=== PATIENT | male | born 1965 | race Caucasian/White ===

== ENCOUNTER → 2018-06-22 | Outpatient (CLI) | payer BC ==
--- NOTE | 2018-06-22 11:54 | XR ---
EXAM TYPE: LUMBAR SPINE X RAY SERIES COMPARISON: NONE HISTORY: Lower back pain TECHNIQUE: 4 views are submitted. FINDINGS: Alignment is anatomic. The pedicles are intact. The transverse processes are intact. There is no s pondylolysis or spondylolisthesis. Facet arthropathy L5-S1. Degenerative disc disease L4-5 and L5-S1 . IMPRESSION: 1. No acute process. Degenerative disc disease, hypertrophic spurring and facet arthropathy L4-5 and L5-S1. Recommend follow-up MRI.
== END | disposition home or self-care (01) ==
LOC: RADXRYALE 11:26
PROVIDERS: ATTEND Internal Medicine
DX: M51.36 Other intervertebral disc degeneration, lumbar region (principal); M51.37 Other intervertebral disc degeneration, lumbosacral region; M46.96 Unspecified inflammatory spondylopathy, lumbar region; M46.97 Unspecified inflammatory spondylopathy, lumbosacral region
CPT/HCPCS: 72110

== ENCOUNTER → 2019-04-15 | Outpatient (CLI) | payer BC ==
--- NOTE | 2019-04-15 15:42 | XR ---
EXAMINATION TYPE: XR chest 2V DATE OF EXAM: 04/15/2019 COMPARISON: NONE HISTORY: Bronchospasm bronchitis TECHNIQUE: Frontal and lateral views of the chest are obtained. FINDINGS: There is eventration of the right hemidiaphragm. There is bronchial wall thickening. There is no focal air space opacity, pleural effusion, or pneumothorax seen. The cardiac silhouette size i s within normal limits. The osseous structures are intact. IMPRESSION: Correlate for bronchitis, reactive airways disease, follow-up as indicated.
== END | disposition home or self-care (01) ==
LOC: RADXRMAIN 11:23
PROVIDERS: ATTEND Internal Medicine
DX: J20.9 Acute bronchitis, unspecified (principal)
CPT/HCPCS: 71046

== ENCOUNTER → 2023-04-03 | Outpatient (CLI) | payer BC ==
--- NOTE | 2023-04-03 12:22 | CA ---
Transthoracic Echo Report Name: Chalo Dominguez Age: 58 Gender: M : 1965 Exam Date: 04/03/2023 11:14 Exam Location: [facility] Ht (in): 74 Wt (lb): 264 Ordering Physician: Jerilyn Ozuna MD Attending/Referring Phys: Environmental Health And Safety Leader Sylvia Zamora RDCS Procedure CPT: Indications: R07.9 Cardiac Hx: Technical Quality: Fair Contrast 1: Total Dose (mL): Contrast 2: Total Dose (mL): MEASUREMENTS (Male / Female) Normal Values 2D ECHO LV Diastolic Diameter PLAX 4.4 cm 4.2 - 5.9 / 3.9 - 5.3 cm LV Systolic Diameter PLAX 2.9 cm IVS Diastolic Thickness 1.2 cm 0.6 - 1.0 / 0.6 - 0.9 cm LVPW Diastolic Thickness 1.1 cm 0.6 - 1.0 / 0.6 - 0.9 cm LV Relative Wall Thickness 0.5 RV Internal Dim ED PLAX 3.3 cm LA Systolic Diameter LX 3.9 cm 3.0 - 4.0 / 2.7 - 3.8 cm LV Diastolic Volume MOD 4C 98.1 cm??? LV Systolic Volume MOD 4C 66.6 cm??? LV Ejection Fraction MOD 4C 32.1 % LV Cardiac Index MOD 4C 1216.7 cm???/min???m??? LV Diastolic Length 4C 8.2 cm LV Systolic Length 4C 7.3 cm LV Diastolic Volume MOD 2C 135.7 cm??? LV Systolic Volume MOD 2C 62.6 cm??? LV Ejection Fraction MOD 2C 53.9 % LV Cardiac Index MOD 2C 2827.8 cm???/min???m??? LV Diastolic Length 2C 9.0 cm LV Systolic Length 2C 7.5 cm M-MODE Aortic Root Diameter MM 3.9 cm LA Systolic Diameter MM 3.4 cm LA Ao Ratio MM 0.9 DOPPLER AV Peak Velocity 131.8 cm/s AV Peak Gradient 7.0 mmHg Mitral E Point Velocity 72.8 cm/s Mitral A Point Velocity 83.9 cm/s Mitral E to A Ratio 0.9 MV Deceleration Time 123.9 ms MV E' Velocity 8.3 cm/s Mitral E to MV E' Ratio 8.8 TR Peak Velocity 168.9 cm/s TR Peak Gradient 11.4 mmHg Right Ventricular Systolic Press 21.4 mmHg FINDINGS Left Ventricle Left ventricular ejection fraction is estimated at 55-60 %. Left ventricular cavity size normal. Mildly increased septal wall thickness.normal left ventricular wall motion. Right Ventricle Normal right ventricular size and function. Right ventricular systolic pressure within normal limits. Right Atrium Normal right atrial size. Left Atrium Normal left atrial size. Mitral Valve Structurally normal mitral valve. No mitral stenosis, or prolapse.trace mitral regurgitation. Aortic Valve Trileaflet aortic valve. No aortic valve stenosis or regurgitation. Tricuspid Valve Structurally normal tricuspid valve. Mild tricuspid regurgitation. Pulmonic Valve Pulmonic valve not well visualized. Pericardium Normal pericardium. No pericardial effusion. Aorta Mild aortic dilatation at the level of the sinuses of valsalva 39 mm CONCLUSIONS 1. Normal left ventricle size and systolic function 2. Trace mitral and mild tricuspid regurgitation with normal right-sided pressure 3. Mildly dilated ascending aorta Previewed by: Dr. Olive Romero MD (Electronically Signed) Final Date: 03 April 2023 12:22
--- NOTE | 2023-04-03 12:24 | CA ---
Exercise Stress Test Report Name: Chalo Dominguez Exam Date: 04/03/2023 10:55 Exam Location: [facility] Ht (in): 74 Wt (lb): 265 BSA: 2.45 Ordering Phys: Jerilyn Ozuna MD Referring Phys: ELLI, Technologist: Darius Watt Age: 58 Gender: M : 1965 Procedure CPT: Indications: R07.9 ICD-10 Codes: Patient History: CHEST PAIN, ELEVATED CHOLESTEROL LEVELS Medications: LOVASTATIN, MOTRIN Meds past 24 hrs: Pretest Chest Pain: STRESS TEST Lucio Protocol Exercise Duration (min:sec): 08:[address] Depressions (mm): 0 Angina Score: 0 Ventura Score: 8 Resting HR (bpm): 93 Peak HR (bpm): 159 Resting BP (mmHg): 131 / 83 Peak BP (mmHg): 200 / 61 MPHR: 161 Target HR: 137 % MPHR: 99 METS: 9.7 Total Dose: Peak Dose: Atropine: Double Product: 00318 BP Response: Stress Termination: MAX EXERTION/TARGET HR Stress Symptoms: NO SYMPTOMS Stress Summary: The patient's target heart rate was achieved, The hemodynamic response to exercise was normal ECG ANALYSIS Resting ECG: Sinus rhythm. Normal conduction. No arrhythmias. Normal repolarization. Stress ECG: No ECG evidence of ischemia with exercise. CONCLUSIONS Patient falls into low-risk group (DTS >= +5). This associates the patient with an annual CV mortality <= 0.5%. 1. Average exercise tolerance 2. Normal electrocardiographic response to exercise with no evidence of exercise induced ischemia Dr. Olive Romero MD (Electronically Signed) Final Date: 03 April 2023 12:23
== END | disposition home or self-care (01) ==
LOC: RADNMMAIN 10:34
PROVIDERS: ATTEND Internal Medicine
DX: I08.1 Rheumatic disorders of both mitral and tricuspid valves (principal); R07.9 Chest pain, unspecified
CPT/HCPCS: 93017; 93306

== ENCOUNTER → 2024-03-09 | Outpatient (CLI) | payer BC ==
--- NOTE | 2024-03-09 16:02 | XR ---
EXAMINATION TYPE: XR chest 2V DATE OF EXAM: 03/09/2024 3:40 PM CLINICAL INDICATION:Male, 58 years old with history of [id number] ACUTE BRONCHITIS; [facility] COMPARISON: Chest radiographs from 04/15/2019. TECHNIQUE: XR chest 2V Frontal and lateral views of the chest. FINDINGS: Lungs/Pleura: There is flattening of the diaphragm with increased lucency of the lungs. No evidence o f pneumothorax, pleural effusion or focal consolidation. Pulmonary vascularity: Unremarkable. Heart/mediastinum: Cardiomediastinal silhouette is unremarkable. Musculoskeletal: No acute osseous pathology. IMPRESSION: 1. No acute cardiopulmonary disease process. 2. COPD changes.
== END | disposition home or self-care (01) ==
LOC: RADXRYALE 15:33
PROVIDERS: ATTEND Internal Medicine
DX: J98.01 Acute bronchospasm (principal); J44.9 Chronic obstructive pulmonary disease, unspecified
CPT/HCPCS: 71046